=== PATIENT | male | born 1985 | race Caucasian/White ===

== ENCOUNTER 2019-01-22 18:05 | Emergency (ER) | payer OTHER ==
[2019-01-22 18:14] VITALS: BP 97/65
--- NOTE | 2019-01-22 18:24 | ED Physician Documentation ---
PD HPI LOWER EXT INJURY - Stated complaint Stated Complaint: RT LEG PX - Chief complaint Chief Complaint: Ext Problem - History obtained from History obtained from: Patient - History of Present Illness PD HPI LOW EXT INJURY LOCATION: Right (33-year-old gentleman, active duty in the [employer]. He was playing flag football today and did a cut maneuver and felt a pop in the back of the right thigh with moderate pain there that is now somewhat better. He is able to walk and bear weight. No other injuries.) Review of Systems Constitutional: reports: Reviewed and negative Cardiac: reports: Reviewed and negative Respiratory: reports: Reviewed and negative PD PAST MEDICAL HISTORY - Past Surgical History Past Surgical History: No - Present Medications Home Medications: Ambulatory Orders Medication Instructions Recorded Confirmed oxyCODONE/ACET 5/325 [Percocet 5 1 - 2 each PO Q4-6H PRN #20 tablet 10//15 mg/325 mg] LORazepam [Ativan] 1 - 2 mg PO Q8HR PRN #20 tablet 05/02/16 hydrOXYzine PAMOATE [Vistaril] 25 - 50 mg PO Q8HR PRN #20 capsule 05/02/16 - Allergies Allergies/Adverse Reactions: Allergies Allergy/AdvReac Type Severity Reaction Status Date / Time No Known Drug Allergies Allergy Verified 01/22/19 18:14 - Social History Does the pt smoke?: No Smoking Status: Never smoker Does the pt drink ETOH?: No Does the pt have substance abuse?: No - Immunizations Immunizations are current?: Yes PD ED PE NORMAL - Vitals Vital signs reviewed: Yes - General General: Alert and oriented X 3, No acute distress - Extremities Extremities: Other (His gait is fairly normal. He is mildly tender over the right hamstring without bony tenderness. He is able to resist forced extension of the leg.) - Neuro Neuro: Alert and oriented X 3, Normal speech Results - Vitals Vitals: Vital Signs - 24 hr 01/22/19 18:12 Temperature 36.4 C L Heart Rate 96 Respiratory 15 Rate Blood Pressure 97/65 O2 Saturation 100 Oxygen O2 Source Room air PD MEDICAL DECISION MAKING - ED course ED course: This is a 33-year-old gentleman who is active duty in the [employer] presents with what looks like a partial hamstring tear or strain on the right. Conservative care and primary care follow-up was advised. He declined prescription pain medications. He did need a work note. Departure - Departure Disposition: 01 Home, Self Care Clinical Impression: Right hamstring muscle strain Qualifiers: Encounter type: initial encounter Qualified Code(s): S76.311A - Strain of muscle, fascia and tendon of the posterior muscle group at thigh level, right thigh, initial encounter Condition: Good Record reviewed to determine appropriate education?: Yes Instructions: ED Strain Muscle Ext Comments: Take ibuprofen as needed for pain. Ice it. You can walk and bear weight as tolerated. [place]. Return for new or worsening symptoms. Forms: Activity restrictions
== END 2019-01-22 18:33 | disposition home or self-care (01) ==
LOC: ED 18:05
DX: S76.311A Strain of muscle, fascia and tendon of the posterior muscle group at thigh level, right thigh, initial encounter (principal); X50.1XXA Overexertion from prolonged static or awkward postures, initial encounter; Y93.62 Activity, american flag or touch football
CPT/HCPCS: 99282

== ENCOUNTER 2023-09-20 14:07 | Outpatient (CLI) | payer OTHER ==
--- NOTE | 2023-09-20 14:58 | Sleep Patient Instructions ---
Sleep Center Visit Summary - Patient Visit Information Reason for Visit: Initial consult for evaluation of sleep disordered breathing and other sleep issues. - Patient Instructions Instructions Attached: Sleep Study, Sleep Study Home Monitor Additional Instructions: You will be completing a sleep study, either an in-lab polysomnography (PSG) or home sleep study (HST). You will follow-up in the sleep care office after the sleep study is completed to hear the results and talk about therapy, if needed. You will be called by our office staff to schedule this appointment, but you may contact us with any questions. - Clinic Information Contact: [facility] [address] [place] [id number] [email or web address] T: [phone]
--- NOTE | 2023-09-20 15:00 | SLEEP CARE CONSULTATION ---
Information from patient questionnaire entered by Kalpana Huang. I have reviewed and concur with the information entered by Kalpana Huang. This document represents the service I personally performed and the decisions made by me, Daphne Vora ARNP. History of Present Illness Service Date and Time: 09/20/2023 2154 Reason for Visit: New patient Chief Complaint: reports: Unrefreshed sleep, Snoring, Observed pauses in breathing, Fatigue, Frequent awakenings at night Date of Onset: 6 - 7 years Usual bedtime: 10:00 PM Time it takes to fall asleep: 20 - 30 minutes Snores at night: Yes Observed to quit breathing while asleep: Yes Sleeps alone due to snoring: Yes Number of times waking at night: 3 - 4 Reasons for waking at night: reports: Choking (something clogging throat), Snoring, Gasping for air (not often), Other (I have been woken up feeling like I had been possibly choking as I woke up and I have to clear my throat) Toss, Turn, or Twitch while sleeping: Yes Recalls having dreams: Yes Usually gets out of bed at: 5:45 AM; weekends 0800ish Feels refreshed in the morning: No Morning headache: Yes (Not all the time,but have rough nights where I wake up several times) Sleepy or fatigued during the day: Yes Ever fallen asleep while driving: No Takes day naps: No (Unless it's the weekend) Dreams during day naps: Yes Prior sleep studies: No Additional HPI information: I had the pleasure of seeing DALLIN PALUMBO today regarding the possibility of him having a sleep disorder. His current complaints are fatigue, frequent night awakenings, observed pauses in breathing, snoring and unrefreshed sleep. He says he snores all the time and will wake up his . She will move to couch sometimes. If he is sleeping on his back he will wake up choking. His has noted that he stopped breathing. He does not wake up feeling refreshed and is tired throughout the day. - Parasomnia Symptoms Ever been unable to move upon waking from sleep: No Walks in sleep: No Talks in sleep: No Ever acted out dreams in sleep: No Ever felt weak in the knees when startled or emotional: No Bothered by creepy, crawly, restless sensations in legs: No Problems with memory or concentration: No Subjective Initial [place] Sleepiness Scale score: 14 (in 2023) Past Medical History Past Medical History: reports: Other (Strained muscle or pinched nerve in back left side since August) Social History The patient's occupation is active duty in the [employer]. Patient is and lives in [place]. Have you smoked in the past 12 months: No Alcohol use: Yes Alcohol amount and frequency: Rarely a drink, maybe every 1 - 2 months Caffeine use: Yes Caffeine amount and frequency: 1 daily Family History Family history of sleep disordered breathing: Yes Family Hx Sleep Apnea: Father: Snoring, Sleep apnea - Treated, Sibling: Snoring, Sleep apnea - Treated Allergies and Home Medications Known drug allergies: No Drug allergies reviewed: Yes Home medication list reviewed: Yes (as listed) Allergy and home medication list: Allergies No Known Drug Allergies Allergy (Verified 09/18/23 16:14) Home Medications Medication Instructions Recorded Confirmed Last Taken Type Baclofen See Rx Instructions .ROUTE .COMPLEX 09/20/23 09/20/23 Unknown History Naproxen Sodium See Rx Instructions .ROUTE .COMPLEX 09/20/23 09/20/23 Unknown History Review of Systems Weight gain over past 5 years: 10 Cardiovascular: denies: high blood pressure Gastrointestinal: reports: heartburn Neurological: denies: headaches Psychiatric: denies: anxiety, depression Ear/Nose/Throat: reports: wisdom teeth removed. denies: tonsillectomy Endocrine: reports: sluggishness (/tired) Musculoskeletal: reports: neck pain, back pain Immunologic: reports: sneezing (/runny nose) Physical Exam Vital signs obtained and entered by: Daphne Jama NP Blood Pressure: 101/67 Cuff size: regular Heart Rate: 68 O2 Saturation: 98 Height: 6 ft 1 in Weight: 190 lb Body Mass Index: 25.0 BMI Classification: Overweight Neck circumference: 15.75 (inches) Mouth and throat: narrow oropharynx Soft palate: long Hard palate: normal Uvula: normal Uvula visualization: 25% Mallampati Class III Tongue: enlarged in size with teeth bellamy on lateral edges Tonsils: small Neck: normal w/o lymphadenopathy or thyromegaly Heart: regular rate and rhythm Lungs: clear bilaterally Impression and Plan 1. Suspected Obstructive Sleep Apnea-Hypopnea Syndrome, as suggested by a history of loud and irregular snoring, observed cessation of breath while asleep, gasping or choking in sleep, morning headache, frequent awakening during the night, unrefreshed sleep, and excessive daytime sleepiness. Narrow oropharynx and obesity are common predisposing factors for obstructive sleep apnea-hypopnea syndrome. I recommend proceeding to polysomnography to confirm the diagnosis and to assess severity. If the patient has significant sleep disordered breathing, a manual CPAP titration study will also be performed to find the optimal treatment pressure. I informed the patient of what the sleep studies involve and after some discussion, obtained agreement to proceed. The pathophysiology of obstructive sleep apnea-hypopnea syndrome was discussed with the patient and health risks of cardiovascular and cerebrovascular disease if not treated. Risks of drowsy driving discussed in detail and patient advised to avoid long distance driving and to cable puller at the first sign of drowsiness. Patient agreed to plan. * Schedule polysomnography * Avoid long distance driving or driving when feeling sleepy. * Avoid alcohol, sedative and muscle relaxant around bedtime. * Attempt to lose weight. * Review instructions provided by trained office staff on how to prepare for the sleep study. * Return for follow-up after sleep study completed. Counseling Topics: Weight loss health impact Plan: PSG/HST Visit Type: In Office Time Spent with Patient (minutes): 30 Provider Statement: I spent 100% of the Face to Face Visit with the patient with greater than 50% spent counseling the patient and coordination of care.
[2023-09-20 15:09] VITALS: BP 101/67; O2SAT 98
== END 2023-09-20 14:08 | disposition home or self-care (01) ==
LOC: SC 14:07
PROVIDERS: ATTEND Nurse Practitioner Family
DX: G47.10 Hypersomnia, unspecified (principal); R06.81 Apnea, not elsewhere classified; G47.8 Other sleep disorders
CPT/HCPCS: 99203; 99212

== ENCOUNTER 2023-10-15 20:39 | Outpatient (CLI) | payer OTHER | END 2023-10-15 20:40 | disposition home or self-care (01) | LOC: SC 20:39 | PROVIDERS: ATTEND Nurse Practitioner Family | DX: R06.83 Snoring (principal); G47.8 Other sleep disorders; R06.81 Apnea, not elsewhere classified; R51.9 Headache, unspecified; R53.83 Other fatigue; G47.10 Hypersomnia, unspecified | CPT/HCPCS: 95810 ==

== ENCOUNTER 2023-11-12 08:49 | Outpatient (CLI) | payer OTHER ==
--- NOTE | 2023-11-12 09:10 | Sleep Patient Instructions ---
Sleep Center Visit Summary - Patient Visit Information Reason for Visit: Sleep study follow-up - Patient Instructions Additional Instructions: Your sleep study today was negative for significant sleep disordered breathing. You were found to have episodes of snoring. There are different ways to control snoring including weight loss, oral devices made by a dentist or surgical options through ENT specialist. You should not use oral devices that do not fit properly because they can affect your bite. You should also check insurance coverage of oral devices for snoring because they may not be cover well. You may obtain a referral to an ENT specialist through your primary provider. Follow-up as needed. - Clinic Information Contact: [facility] [address] [place] [address] [email or web address] T: [phone]
--- NOTE | 2023-11-12 09:11 | SLEEP CARE CONSULTATION ---
Information from patient questionnaire entered by Jeniffer Darby. I have reviewed and concur with the information entered by Jeniffer Darby. This document represents the service I personally performed and the decisions made by , Daphne Vora ARNP. History of Present Illness Service Date and Time: 11/12/2023 0849 Initial [place] Sleepiness Scale score: 14 Current [place] Sleepiness Scale score: 16 (11/12/23) Additional HPI information: DALLIN PALUMBO returns for follow up and results of the recently performed polysomnography. The patient was informed of the following findings: No significant sleep disordered breathing with an average AHI of 0.5 and haylie oxygen saturation of 91%. I explained the pathophysiology behind obstructive sleep apnea. Patient does not have sleep apnea and was advised how weight gain could increase the risk of developing sleep apnea in the future. Patient has light snoring. Snoring can be reduced by weight loss. Weight loss is best achieved with diet consult. Patient instructed to contact PCP for referral. Snoring can also be treated with an oral appliance from a dentist. Advised to check insurance coverage. In addition, an ENT evaluation can be do to see if other treatment is indicated. Patient counseled not drink alcohol less than 4 hours before bedtime as it can increase snoring and apnea. Patient was cautioned about risks of drowsy driving until sleepiness symptoms resolve. Patient denies drowsy driving. Sleep Study - Results Type of Sleep Study: Polysomnography (COMPLETED 10/15/23) Prior sleep studies: No Polysomnography/Home Sleep Study results: IMPRESSION: The quality of the study is good. The patient had normal sleep efficiency. The sleep architecture was normal as well. Respiratory monitoring showed no significant sleep disordered breathing (AHI = 0.5) or hypoxia (haylie oxygen saturation of 91%). The patient slept mostly supine (supine AHI = 0.5; non-supine = 0.00). Snore was light in intensity. There was no significant periodic leg movement of sleep. Cardiac rhythm was normal sinus rhythm without significant arrhythmia. No abnormal behavior (parasomnia) observed during the night. Allergies and Home Medications Known drug allergies: No Drug allergies reviewed: Yes Home medication list reviewed: Yes (no changes) Allergy and home medication list: Allergies No Known Drug Allergies Allergy (Verified 11/08/23 12:08) Review of Systems Review of systems same as previous: Yes (NO CHANGE) Physical Exam Vital signs obtained and entered by: JENIFFER Jain MA Blood Pressure: 93/67 (LEFT ARM) Cuff size: regular Heart Rate: 77 O2 Saturation: 99 Height: 6 ft 1 in Weight: 192 lb 9.6 oz Body Mass Index: 25.4 BMI Classification: Overweight Impression and Plan 1. Snoring but no significant sleep disordered breathing. Patient advised that often weight loss will reduce snoring as well as apnea risk. An oral appliance can also be used for snoring. This would require a dental consultation. Patient cautioned not to use other online appliances as can cause bite issues. Patient is advised to check if insurance will cover. An ENT consult can also be helpful to determine if any other treatment is an option. 2. Overweight, minimal. Currently patients BMI is 25.4. Obesity increases the risk of apnea, CPAP pressure requirements and overall health risks especially cardiovascular and diabetes. Thus patient is advised to maintain a healthy weight. * Maintain a healthy weight * Avoid alcohol consumption near bedtime * The patient is cautioned about driving until sleepiness is completely resolved. * Return as needed for follow up. Counseling Topics: Weight control Follow up with Sleep Care in: as needed Visit Type: In Office Time Spent with Patient (minutes): 11 Provider Statement: I spent 100% of the Face to Face Visit with the patient with greater than 50% spent counseling the patient and coordination of care.
[2023-11-12 09:40] VITALS: BP 93/67; O2SAT 99
== END 2023-11-12 08:50 | disposition home or self-care (01) ==
LOC: SC 08:49
PROVIDERS: ATTEND Nurse Practitioner Family
DX: R06.83 Snoring (principal); E66.3 Overweight; Z68.25 Body mass index [BMI] 25.0-25.9, adult
CPT/HCPCS: 99212